=== PATIENT | female | born 1990 ===

== ENCOUNTER 2018-06-06 11:38 | Emergency (ER) | payer SELFPAY, OTHER ==
[2018-06-06] MEDS: LORAZEPAM 2 MG INJ IM (11:47)
[2018-06-06] MEDS: MAGNESIUM CITRATE 300 ML BTL PO (12:42)
[2018-06-06] MEDS: OLANZAPINE (ODT) 5 MG TAB ODT (13:22)
[2018-06-06 13:31] LABS: ADD MAN DIFF? NO
[2018-06-06 13:48] LABS: WHITE BLOOD COUNT 12.8 10^3/ul (4.8-10.8)
[2018-06-06 13:48] LABS: BASOPHILS % 0.3 % (0.0-2.0); EOSINOPHILS % 0.2 % (0.0-7.0); HEMATOCRIT 37.7 % (37.0-47.0); HEMOGLOBIN 12.7 g/dl (12.0-16.0); LYMPHOCYTES # 1.4 10^3/ul (0.8-2.9); LYMPHOCYTES % 10.8 % (15.0-51.0); MEAN CORPUSCULAR HEMOGLOBIN 29.7 pg (29.0-33.0); MEAN CORPUSCULAR HGB CONC 33.7 g/dl (32.0-37.0); MEAN CORPUSCULAR VOLUME 88.1 fl (82.0-101.0); MEAN PLATELET VOLUME 10.1 fl (7.4-10.4); MONOCYTE # 1.2 10^3/ul (0.3-0.9); MONOCYTES % 9.4 % (0.0-11.0); NEUTROPHIL # 10.1 10^3/ul (1.6-7.5); NEUTROPHILS % 78.8 % (39.0-77.0); PLATELET COUNT 274 10^3/UL (140-415); RED BLOOD COUNT 4.28 10^6/ul (4.20-5.40); RED CELL DISTRIBUTION WIDTH 11.7 % (11.5-14.5)
[2018-06-06 14:11] LABS: ALANINE AMINOTRANSFERASE 42 IU/L (13-69); ALBUMIN 5.2 g/dl (3.3-4.9); ALBUMIN/GLOBULIN RATIO 1.44; ALKALINE PHOSPHATASE 62 IU/L (42-121); ANION GAP 25 (8-16); ASPARTATE AMINO TRANSFERASE 66 IU/L (15-46); BILIRUBIN,INDIRECT 1.2 mg/dl (0-1.1); BILIRUBIN,TOTAL 1.2 mg/dl (0.2-1.3); BLOOD UREA NITROGEN 26 mg/dl (7-20); CALCIUM 9.9 mg/dl (8.4-10.2); CARBON DIOXIDE 18 mmol/L (21-31); CHLORIDE 100 mmol/L (97-110); CREATININE 1.38 mg/dl (0.44-1.00); GLUCOSE 86 mg/dl (70-220); POTASSIUM 3.7 mmol/L (3.5-5.1); SODIUM 139 mmol/L (135-144); TOTAL PROTEIN 8.8 g/dl (6.1-8.1)
[2018-06-06 14:13] LABS: ETHANOL < 10.0 mg/dl
[2018-06-06 19:35] LABS: BARBITURATES Negative (NEGATIVE); BENZODIAZEPINES Negative (NEGATIVE); CANNABINOIDS Positive (NEGATIVE); COCAINE Negative (NEGATIVE)
[2018-06-06 19:40] LABS: OPIATES Positive (NEGATIVE)
[2018-06-06 19:53] LABS: AMPHETAMINE/METHAMPHETAMINE POSITIVE (NEGATIVE)
[2018-06-07] MEDS: hydrOXYzine PAMOATE 25 MG CAP PO
[2018-06-07] MEDS: LORAZEPAM 2 MG INJ IV (17:13)
[2018-06-07] MEDS: LORAZEPAM 2 MG INJ IM (17:20)
[2018-06-07] MEDS: OLANZAPINE 5 MG TAB PO (21:14)
[2018-06-08] MEDS: OLANZAPINE 5 MG TAB PO (09:24)
== END 2018-06-08 10:20 | disposition home or self-care (01) ==
LOC: E/R 06-08 10:20
DX: T14.91XA Suicide attempt, initial encounter (principal); R45.1 Restlessness and agitation; F17.210 Nicotine dependence, cigarettes, uncomplicated; X83.8XXA Intentional self-harm by other specified means, initial encounter
CPT/HCPCS: 80053; 80307; 84703; 85025; 96372; 99284-25

== ENCOUNTER 2018-06-08 13:01 | Emergency (ER) | payer SELFPAY | END 2018-06-08 14:38 | disposition home or self-care (01) | LOC: E/R 13:01 | DX: Z00.00 Encounter for general adult medical examination without abnormal findings (principal); Z72.89 Other problems related to lifestyle; Z87.891 Personal history of nicotine dependence | CPT/HCPCS: 99282 ==